=== PATIENT | female | born 2000 | race Two or more races ===

== ENCOUNTER 2021-03-31 17:02 | Emergency (ER) | payer MEDICAID, OTHER ==
[~2021-03-31] VITALS: Ht 172.7 cm; Wt 78.9 kg
[2021-03-31] MEDS ORDERED: ALPR0.25 PO (18:41)
[2021-03-31] MEDS ORDERED: ALPRAZOLAM 0.25 MG TABLET PO ONE (18:45)
--- NOTE | 2021-03-31 18:53 | NUR ---
Patient discharged to home in stable condition. Written and verbal after care instructions given. Patient verbalizes understanding of instructions. Stressed follow up or return to ER for worsening s/s.
== END 2021-03-31 18:54 | disposition home or self-care (01) ==
LOC: ER 17:04
DX: F41.9 Anxiety disorder, unspecified (principal); F32.9 Major depressive disorder, single episode, unspecified
CPT/HCPCS: A4663